=== PATIENT | male | born 2005 | race Caucasian/White ===

== ENCOUNTER → 2024-10-31 15:35 | Outpatient (REF) | payer OTHER, SELFPAY | LOC: REG 15:35 | PROVIDERS: ATTENDING PHYSICIAN Student in an Organized Health Care Education/Training Program; FAMILY PHYSICIAN Family Medicine | DX: M25.562 Pain in left knee (principal); M25.561 Pain in right knee; G89.29 Other chronic pain; K12.1 Other forms of stomatitis; M25.50 Pain in unspecified joint; M53.3 Sacrococcygeal disorders, not elsewhere classified | CPT/HCPCS: 72202; 73560; 73565 ==